=== PATIENT | male | born 1990 | race Caucasian/White ===

== ENCOUNTER 2018-09-06 23:24 | Emergency (ER) | payer OTHER ==
[2018-09-06] MEDS ORDERED: AMOXICILLIN TR/POT CLAVULANATE 500-125 MG TAB PO ONE (23:29)
--- NOTE | 2018-09-06 23:46 | ER Document Report ---
ED General - General Stated Complaint: DOG BITE, PUNCTURE WOUND Time Seen by Provider: 09/06/18 23:29 Notes: Patient is a pleasant 28-year-old male who was bit on his right forearm when he was trying to separate his dogs from fighting. Patient presents with 4 puncture wounds on his right forearm. Some mild swelling. He denies any pain with range of motion of his right forearm wrist or hand. He has had a tetanus shot last 5 years. He denies any other medical problems or complaints. - Related Data Allergies/Adverse Reactions: vancomycin Allergy (Verified 09/07/18 00:08) Past Medical History - Social History Smoking Status: Unknown if Ever Smoked Frequency of alcohol use: Occasional Drug Abuse: None Family History: Reviewed & Not Pertinent Review of Systems - Review of Systems Notes: My Normal Review Basic REVIEW OF SYSTEMS: CONSTITUTIONAL : Denies fever, chills, or sweats. Denies recent illness. MUSCULOSKELETAL: Dog bite to right forearm. SKIN: Denies rash or skin lesions. NEUROLOGICAL: Denies sensory or motor loss. ALL OTHER SYSTEMS REVIEWED AND NEGATIVE. Physical Exam - Vital signs Vitals: Temp Pulse BP Pulse Ox 98.8 F 94 136/89 H 98 09/06/18 23:53 09/06/18 23:53 09/06/18 23:53 09/06/18 23:53 - Notes Notes: General Appearance: Well nourished, alert, cooperative, no acute distress, no obvious discomfort. Vitals: reviewed, See vital signs table. Eyes: PERRL, EOMI, Conjuctiva clear Extremities: She has 4 puncture wounds to the right forearm from dog bite. He has a small amount of localized swelling. He is able to fully supinate and pronate his right forearm and flex and extend his elbow wrist and hand without any difficulty. He has good strength in all fingers of the right hand. No bite to the hand itself. No active bleeding at this time. Skin: warm, dry, appropriate color, no rash Neuro: speech clear, oriented x 3, normal affect, responds appropriately to questions. Course - Re-evaluation Re-evalutation: 09/07/18 06:44 Patient is well-appearing. I do not feel he needs x-rays for him as he has full range of motion of his forearm without significant pain. He does not have any initial signs of infection however I will place him Augmentin based on the fact the dog bite. I did clean the wound to chlorhexidine and then flushed with saline. I encouraged him return to ER immediately if he has any redness, increasing swelling, increasing pain, or if he has any further concerns. Patient agrees with plan and will be discharged home. On evaluation of the wounds I do not see evidence of retained foreign body such as a tooth. Dictation of this chart was performed using voice recognition software; therefore, there may be some unintended grammatical errors. - Vital Signs Vital signs: Temp Pulse Resp BP Pulse Ox 98.8 F 94 136/89 H 98 09/06/18 23:53 09/06/18 23:53 09/06/18 23:53 09/06/18 23:53 Discharge - Discharge Clinical Impression: Dog bite Qualifiers: Encounter type: initial encounter Qualified Code(s): W54.0XXA - Bitten by dog, initial encounter Condition: Good Disposition: HOME, SELF-CARE Additional Instructions: Please continue clean the wounds in her arm with soap and water every day. Please keep them covered if you are working in a dirty environment. Please return to the ER immediately if you have any redness or increasing swelling of your arm or around the wounds. Prescriptions: Amox Tr/Potassium Clavulanate [Augmentin 875-125 Tablet] 1 tab PO BID #14 tablet
[2018-09-07 00:06] VITALS: BP 136/89
== END 2018-09-07 00:08 | disposition home or self-care (01) ==
LOC: ER 23:24
DX: S51.851A Open bite of right forearm, initial encounter (principal); W54.0XXA Bitten by dog, initial encounter
CPT/HCPCS: 99283

== ENCOUNTER 2020-01-06 19:10 | Emergency (ER) | payer OTHER ==
[2020-01-06 19:32] VITALS: BP 143/77
== END 2020-01-06 19:51 | disposition left against medical advice (07) ==
LOC: ER 19:10
DX: Z53.21 Procedure and treatment not carried out due to patient leaving prior to being seen by health care provider (principal)